=== PATIENT | female | born 1950 | race Caucasian/White ===

== ENCOUNTER 2018-10-26 18:42 | Emergency (ER) | payer OTHER ==
--- NOTE | 2018-10-26 18:49 | ER Report ---
History and Physical Time Seen By MD: 18:49 HPI/ROS CHIEF COMPLAINT: chest pain HISTORY OF PRESENT ILLNESS: This is a 68 year old female. She has a history of NH and stents. Has had chest pain, central substernal, radiation to neck, jaw and left arm. Similar to prior NH pain, although not as severe. Has some nausea with this. Given 324mg PO aspirin by EMS as well as 2 sprays of nitroglycerin without relief of symptoms. Has a headache after the nitro. Rates the chest pain 7 on a 1-10 scale. No fevers or chills. Her yard assistant is Dr. Almonte at [facility]. REVIEW OF SYSTEMS: Constitutional: No fever or chills. Eyes: No vision changes. ENT: No sore throat. No congestion. Cardiovascular: As above. Respiratory: As above. Gastrointestinal: No abdominal pain. Genitourinary: No problems with urination. Musculoskeletal: No musculoskeletal pain Skin: No rashes. Neurological: No numbness. Generalized weakness. Allergies: Coded Allergies: No Known Drug Allergies (Verified , 10/26/18) Home Meds Reported Medications Hydrocodone Bit/Acetaminophen (NORCO 5-325 TABLET) 1 Each Tablet, 1-2 EACH PO PRN for PAIN 08/21/13 Ibuprofen (MOTRIN IB) 200 Mg Tablet, 4 TAB PO Q6-8H 08/21/13 Fluticasone Propionate (FLOVENT HFA) 110 Mcg Inha, 110 MCG INH 07/28/13 Amlodipine Besylate (AMLODIPINE BESYLATE) 5 Mg Tablet, 1 TAB PO QDAY, TAB TAKE ONE TABLET BY MOUTH EVERY DAY 07/28/13 Pantoprazole Sodium (PANTOPRAZOLE SODIUM) 40 Mg Tablet.dr, 40 MG PO QDAY, TAB.SR 07/28/13 Levothyroxine Sodium (LEVOTHYROXINE SODIUM) 88 Mcg Tablet, 88 MCG PO QDAY 07/28/13 Lutein (Lutein) 6 Mg Capsule, 20 MG PO DAILY, 0 Refills 06/28/09 Solifenacin Succinate (Vesicare) 5 Mg Tab, 5 MG PO QDAY, 0 Refills 06/28/09 Desvenlafaxine Succinate (Pristiq) 50 Mg Tab.sr.24h, 100 MG PO DAILY, 0 Refills 06/28/09 Reviewed Nurses Notes: Yes Hx Smoking: No Hx Alcohol Use: No Constitutional Vital Sign - Last 24 Hours 10/26/18 10/26/18 10/26/18 10/26/18 18:43 18:43 18:52 18:56 Temp 98.1 Pulse 73 Resp 24 B/P (MAP) 137/77 137/77 (97) 132/72 (92) Pulse Ox 99 O2 Delivery Nasal Cannula O2 Flow Rate 2.0 10/26/18 10/26/18 10/26/18 10/26/18 18:57 19:00 19:12 19:27 Pulse 71 68 65 Resp 9 13 12 B/P (MAP) 130/61 (84) Pulse Ox 99 100 100 10/26/18 10/26/18 10/26/18 10/26/18 19:30 19:42 19:57 20:00 Pulse 65 67 Resp 16 9 B/P (MAP) 139/74 (95) 120/68 (85) Pulse Ox 99 96 10/26/18 10/26/18 10/26/18 10/26/18 20:12 20:27 20:30 20:30 Pulse 66 64 65 Resp 10 8 11 B/P (MAP) 117/64 (81) 117/64 (81) Pulse Ox 96 96 95 10/26/18 10/26/18 10/26/18 10/26/18 20:45 21:00 21:15 21:30 Pulse 67 66 69 67 Resp 12 9 14 13 B/P (MAP) 111/62 (78) 112/71 (85) Pulse Ox 95 95 94 96 10/26/18 10/26/18 10/26/18 10/26/18 21:45 22:00 22:05 22:20 Pulse 67 62 66 66 Resp 14 12 11 8 B/P (MAP) 116/65 (82) Pulse Ox 97 96 96 94 18/10/26/10/26/10/26/18 22:30 22:35 22:50 23:00 Pulse 65 66 Resp 7 12 B/P (MAP) 119/65 (83) 115/64 (81) Pulse Ox 94 95 18/10/26/10/26/10/26/18 23:05 23:20 23:30 23:35 Pulse 75 62 62 Resp 14 13 12 B/P (MAP) 125/72 (89) Pulse Ox 90 97 97 10/26/18 10/26/18 10/27/18 10/27/18 23:40 23:55 00:00 00:10 Pulse 81 64 61 Resp 26 12 6 B/P (MAP) 116/70 (85) Pulse Ox 88 96 96 10/27/18 10/27/18 10/27/18 10/27/18 00:25 00:30 00:40 00:55 Pulse 63 64 ??? Resp 9 9 35 B/P (MAP) 120/70 (87) Pulse Ox 95 95 Intake and Output 10/26/18 10/26/18 10/27/18 15:00 23:00 07:00 Intake Total 1000 ml 24.8 ml Balance 1000 ml 24.8 ml Physical Exam General Appearance: The patient is alert. Acute distress due to symptoms. Eyes: Pupils are equal, round. No pallor, injection or icterus. ENT: Mucous membranes are moist. Normal oral mucosa. Posterior oropharynx is normal. Neck: Supple and non tender. Respiratory: Lungs are clear to auscultation. Cardiovascular: Regular rate and rhythm. No murmurs, gallops or rubs. Normal capillary refill. Has bilateral trace ankle edema. Gastrointestinal: Abdomen is soft and non tender. Nondistended. Normal active bowel sounds. Neurological: Alert and oriented x3. Skin: Warm and dry. No rashes. Musculoskeletal: Extremities are nontender. Has some pain reproducible in the chest wall with palpation, but described as different that the pain she is concerned about. DIFFERENTIAL DIAGNOSIS: After history and physical exam, differential diagnosis was considered for chest pain including but not limited to myocardial ischemia, pericarditis pulmonary embolus, chest wall pain, pleural inflammation and pul monary infectious causes. Medical Decision Making Data Points Result Diagram: 10/26/18 1840 10/26/18 1840 Laboratory Hematology Test 10/26/18 18:40 10/26/18 22:33 Red Blood Count 4.85 M/uL (4.17-5.56) Mean Corpuscular Volume 79.5 fL (80.0-96.0) Mean Corpuscular Hemoglobin 26.0 pg (26.0-33.0) Mean Corpuscular Hemoglobin Concent 32.7 g/dL (32.0-36.0) Red Cell Distribution Width 17.3 % (11.5-14.5) Mean Platelet Volume 8.2 fL (7.2-11.1) Neutrophils (%) (Auto) 61.1 % (39.4-72.5) Lymphocytes (%) (Auto) 27.3 % (17.6-49.6) Monocytes (%) (Auto) 8.5 % (4.1-12.4) Eosinophils (%) (Auto) 2.5 % (0.4-6.7) Basophils (%) (Auto) 0.6 % (0.3-1.4) Nucleated RBC Relative Count (auto) 0.0 /100WBC Neutrophils # (Auto) 4.0 K/uL (2.0-7.4) Lymphocytes # (Auto) 1.8 K/uL (1.3-3.6) Monocytes # (Auto) 0.6 K/uL (0.3-1.0) Eosinophils # (Auto) 0.2 K/uL (0.0-0.5) Basophils # (Auto) 0.0 K/uL (0.0-0.1) Nucleated RBC Absolute Count (auto) 0.00 K/uL Prothrombin Time 12.7 seconds (12.0-14.4) Prothromb Time International Ratio 0.95 Activated Partial Thromboplast Time 35 seconds (23-35) Sodium Level 138 mmol/L (137-145) Potassium Level 3.9 mmol/L (3.5-5.0) Chloride Level 105 mmol/L (98-107) Carbon Dioxide Level 23 mmol/L (22-31) Blood Urea Nitrogen 20 mg/dl (7-18) Creatinine 1.40 mg/dl (0.52-1.04) Glomerular Filtration Rate Calc 37.2 Random Glucose 147 mg/dl (75-110) Calcium Level 9.2 mg/dl (8.4-10.2) Total Bilirubin 0.7 mg/dl (0.2-1.3) Aspartate Amino Transf (AST/SGOT) 69 U/L (0-35) Alanine Aminotransferase (ALT/SGPT) 15 U/L (0-56) Alkaline Phosphatase 347 U/L (0-126) Total Protein 8.3 g/dl (6.3-8.2) Albumin 4.4 g/dl (3.5-5.0) Troponin I 0.257 ng/ml Chemistry Test 10/26/18 18:40 10/26/18 22:33 White Blood Count 6.6 k/uL (4.5-11.0) Red Blood Count 4.85 M/uL (4.17-5.56) Hemoglobin 12.6 g/dL (12.0-16.0) Hematocrit 38.5 % (34.0-47.0) Mean Corpuscular Volume 79.5 fL (80.0-96.0) Mean Corpuscular Hemoglobin 26.0 pg (26.0-33.0) Mean Corpuscular Hemoglobin Concent 32.7 g/dL (32.0-36.0) Red Cell Distribution Width 17.3 % (11.5-14.5) Platelet Count 347 K/uL (150-450) Mean Platelet Volume 8.2 fL (7.2-11.1) Neutrophils (%) (Auto) 61.1 % (39.4-72.5) Lymphocytes (%) (Auto) 27.3 % (17.6-49.6) Monocytes (%) (Auto) 8.5 % (4.1-12.4) Eosinophils (%) (Auto) 2.5 % (0.4-6.7) Basophils (%) (Auto) 0.6 % (0.3-1.4) Nucleated RBC Relative Count (auto) 0.0 /100WBC Neutrophils # (Auto) 4.0 K/uL (2.0-7.4) Lymphocytes # (Auto) 1.8 K/uL (1.3-3.6) Monocytes # (Auto) 0.6 K/uL (0.3-1.0) Eosinophils # (Auto) 0.2 K/uL (0.0-0.5) Basophils # (Auto) 0.0 K/uL (0.0-0.1) Nucleated RBC Absolute Count (auto) 0.00 K/uL Prothrombin Time 12.7 seconds (12.0-14.4) Prothromb Time International Ratio 0.95 Activated Partial Thromboplast Time 35 seconds (23-35) Glomerular Filtration Rate Calc 37.2 Calcium Level 9.2 mg/dl (8.4-10.2) Total Bilirubin 0.7 mg/dl (0.2-1.3) Aspartate Amino Transf (AST/SGOT) 69 U/L (0-35) Alanine Aminotransferase (ALT/SGPT) 15 U/L (0-56) Alkaline Phosphatase 347 U/L (0-126) Total Protein 8.3 g/dl (6.3-8.2) Albumin 4.4 g/dl (3.5-5.0) Troponin I 0.257 ng/ml Coagulation Test 10/26/18 18:40 Prothrombin Time 12.7 seconds Prothromb Time International Ratio 0.95 Activated Partial Thromboplast Time 35 seconds EKG/Imaging EKG Interpretation 12 lead EKG: Rhythm: Normal sinus rhythm, rate 71 [place]: normal QRS: normal ST segments: Does have a little bit of a biphasic nature of the T waves in the inferior leads, no ST elevation or depression noted at this time These changes are nonspecific an look unchanged when compared to her last EKG here. Imaging EXAMINATION: Portable AP Chest HISTORY: Chest pain. COMPARISON: 02/05/2015. FINDINGS: Large hiatal hernia behind the heart. Normal heart size and pulmonary vascularity, with normal cardiomediastinal contours. There is mild parenchymal opacity in both lung bases, greater on the right. This may represent atelectasis or infiltrate. Small pleural effusions are not excluded. The upper lungs are clear. No pneumothorax. No acute osseous findings in the chest. IMPRESSION: 1. Large hiatal hernia behind the heart. 2. Mild bibasilar atelectasis or infiltrate, greater on the right. Small pleural effusions not excluded. 3. Normal heart size. Report Dictated By: Michelet Griffith MD at 10/26/2018 8:11 PM ED Course/Re-evaluation Clinical Indication for ER IV: IV Access ED Course Initial troponin and EKG negative for signs of ischemia however given her history and presentation, high risk for this being an acute coronary syndrome. Gave morphine 4 mg IV and Zofran 4 mg IV to try and help with her pain. This did reduce her pain quite a bit down to about a 2 on a 1-10 scale. Repeat troponin was drawn a little over 3 hours after the first. This came back critically elevated at 0.257. Repeat EKG is unchanged. I reviewed this with the patient. Her yard [place] [facility] [place] and spoke with Dr. العراقي, cardiology, and Dr. Medel, hospitalist, who accepted the patient. We are going to be starting the patient on a heparin bolus and then a heparin drip. 4000 units as a bolus followed by 1000 units per hour as a drip. Pain still little level of 2 on a 1-10 scale. Decision to Disposition Date: October 26, 2018 Decision to Disposition Time: 23:28 Depart Departure Latest Vital Signs Vital Signs Date Time Temp Pulse Resp B/P (MAP) Pulse Ox O2 Delivery O2 Flow Rate FiO2 10/27/18 00:55 ??? 35 10/27/18 00:40 95 10/27/18 00:30 120/70 (87) 10/26/18 18:43 98.1 Nasal Cannula 10/26/18 18:43 2.0 Impression: Primary Impression: Non-ST elevation NH (NSTEMI) Condition: Condition Unchanged Disposition: XFER TO ACUTE CARE HOSPITAL Referrals: SERA HOPE MD (PCP) YOLI COFFEY MD October 26, 2018 18:49
[2018-10-26 19:04] LABS: PLATELET COUNT, AUTOMATED 347 K/uL (150-450)
--- NOTE | 2018-10-26 19:11 | EKG ---
FACILITY: [facility] PATIENT NAME: HANK BRYANT : [id number] MR: [id number] V: [id number] EXAM DATE: ORDERING PHYSICIAN: YOLI COFFEY TECHNOLOGIST: LOIS Test Reason : CHEST PAIN Blood Pressure : / mmHG Vent. Rate : 071 BPM Atrial Rate : 071 BPM P-R Int : 192 ms QRS Dur : 078 ms QT Int : 420 ms P-R-T Axes : 067 -26 004 degrees QTc Int : 456 ms Normal sinus rhythm non-specific st-t wave abnormality Abnormal ECG When compared with ECG of 08-DEC-2013 19:31, No significant change was found Confirmed by Peterson Phillips ([id number]) on 10/26/2018 9:52:28 PM Referred By: Confirmed By:Peterson Tom
[2018-10-26] MEDS ORDERED: MORPHINE 4 MG/ML SDV IVP ONE (19:15)
[2018-10-26] MEDS ORDERED: ONDANSETRON 4 MG/2 ML VIAL IVP ONE (19:15)
[2018-10-26 19:29] LABS: INR 0.95
--- NOTE | 2018-10-26 20:17 | RADIOLOGY IMAGING REPORT ---
FACILITY: [facility] [place] PATIENT NAME: Sahara Medina : 1950 MR: [id number] V: [id number] EXAM DATE: ORDERING PHYSICIAN: YOLI COFFEY TECHNOLOGIST: Location: [facility] [place] Patient: Sahara Medina : 1950 Visit/Account:[id number] Date of Sevice: 10/26/2018 EXAMINATION: Portable AP Chest HISTORY: Chest pain. COMPARISON: 02/05/2015. FINDINGS: Large hiatal hernia behind the heart. Normal heart size and pulmonary vascularity, with normal cardiomediastinal contours. There is mild parenchymal opacity in both lung bases, greater on the right. This may represent atele ctasis or infiltrate. Small pleural effusions are not excluded. The upper lungs are clear. No pneu mothorax. No acute osseous findings in the chest. IMPRESSION: 1. Large hiatal hernia behind the heart. 2. Mild bibasilar atelectasis or infiltrate, greater on the right. Small pleural effusions not excl uded. 3. Normal heart size. Report Dictated By: Michelet Griffith MD at 10/26/2018 8:11 PM Report E-Signed By: Michelet Griffith MD at 10/26/2018 8:14 PM WSN:[id number] MIGUEL
[2018-10-26] MEDS ORDERED: HEPARIN* SOD/D5W 25000 U/500ML 500 ML IV ONE (23:20)
[2018-10-26] MEDS ORDERED: HEPARIN (PORC) 5000 UN/ML VIAL IVP ONE (23:20)
--- NOTE | 2018-10-27 00:11 | EKG ---
FACILITY: [facility] [place] PATIENT NAME: HANK BRYANT : [id number] MR: [id number] V: [id number] EXAM DATE: ORDERING PHYSICIAN: YOLI COFFEY TECHNOLOGIST: LOIS Test Reason : CHEST PAIN Blood Pressure : / mmHG Vent. Rate : 062 BPM Atrial Rate : 062 BPM P-R Int : 196 ms QRS Dur : 080 ms QT Int : 468 ms P-R-T Axes : 061 -03 050 degrees QTc Int : 475 ms Normal sinus rhythm Anterolateral infarct , age undetermined Abnormal ECG When compared with ECG of 26-OCT-2018 19:01, Anterolateral infarct is now present Confirmed by Peterson Phillips ([id number]) on 10/27/2018 7:43:08 AM Referred By: Confirmed By:Peterson Tom
[2018-10-27 00:30] VITALS: BP 120/70
[2018-10-27] MEDS ORDERED: EMS NS 0.9%(*) 1000 ML BAG 1,000 ML IV ONE (01:20)
== END 2018-10-27 00:59 | disposition short-term general hospital (02) ==
LOC: ER 18:44
DX: I21.4 Non-ST elevation (NSTEMI) myocardial infarction (principal)
CPT/HCPCS: 71045; 84484; 85025; 85610; 85730; 93005; 96361; 96365; 96375; 99285; J1644; J2270; J2405; 82040; 82247; 82310; 82374; 82435; 82565; 82947; 84075; 84132; 84155; 84295; 84450; 84460; 84520

== ENCOUNTER → 2018-10-26 | Outpatient (CLI) | payer OTHER ==
[~2018-10-26] MED LIST: AMLO-125 PO; CALC500T42 PO; CEF300 PO; CEFU250 PO; CIPR-368 PO; DESV50TA9 PO; FISH OIL1 CAP PO; FLUINH INH; HYDR-653 PO; IBUP-1671 PO; LEVO50TA80 PO; LEVO88TA45 PO; LISI-349 PO; LOPE2CAP88 PO; LUTE6CAP11 PO; METR-1 PO; MULT1CAP59 PO; NAP250 PO; NAP500 PO; ONDA4TAB PO; PANT40TA65 PO; PRE10 PO; SER50 PO; SOL5 PO
== END ==
LOC: AMB 18:22
PROVIDERS: ATTEND Nurse Practitioner
DX: R07.9 Chest pain, unspecified (principal); M79.602 Pain in left arm; M54.2 Cervicalgia
CPT/HCPCS: A0425; A0427

== ENCOUNTER → 2018-10-27 | Outpatient (CLI) | payer OTHER | LOC: AMB 00:31 | PROVIDERS: ATTEND Nurse Practitioner | DX: I21.4 Non-ST elevation (NSTEMI) myocardial infarction (principal); R53.1 Weakness | CPT/HCPCS: A0425; A0426 ==

== ENCOUNTER 2019-01-13 10:00 | Outpatient (RCR) | payer MEDICARE, OTHER ==
[2018-11-13 12:51] VITALS: BP 122/86
[2018-11-13 12:52] VITALS: BP 120/76
[2018-11-15 12:49] VITALS: BP_SYST 116; BP_SYST 124; BP_DIAS 68
--- NOTE | 2018-11-15 14:24 | CARDIAC REHAB PLAN OF CARE ---
Physician: Diaz Kaiser MD Patient is being seen: Darshana Gallagher MS Medical Diagnosis: NSTEMI; STENT x 2 Date of Onset: 10/27/18 Date of Initial Evaluation: 11/13/18 Due Date: 12/15/18 Patient Assessment: Patient is a 68yr old female who comes to cardiac rehab for the second timeshe did not finish her cardiac rehabilitation in 2013 (only attended for approximately 1 month before quitting). This was her second NSTEMI followed by Stent placement (total 2 stents). She has significant health history of CHF (LVEF 35%), high cholesterol, HTN and sleep apnea (CPAP at night). Anthropologically, she is obese with a BMI of 44.8kg/m2. This excess adiposity has led to the development of OA and difficulty with exercise due to inhibited range of motion. She is highly motivated to be herestating she wants to do it right this time. Her goals are to learn to breath better/feel less SOB and to learn how to lose weight. Exercise Assessment: The patient currently does not do any structured exercise, only walking occasionally. During her 6 Minute-Walk Test she walked a total of 800ft for an average speed of 1.5mph. She took two different breaks during the 6 minutes to rest and catch her breath. She reports SOB of +7/10, but her SPO2 remained above 90% for the majority of the test. She did have some upper respiratory tract wheezing that was not accompanied by any wheezing her in lungs. For exercise she switches between the recumbent bike, NuStep, and treadmill. Her HR varies between 95-110bpm. She had a normal hemodynamic response, with blood pressure rising to 144/72mmHg and her ECG showed sinus tach. Exercise Plan Goals: Goals include improving stamina and exercise breathing techniques and learning how regular exercise contributes to weight loss. Exercise Prescription: Frequency: 3 days/week (MWF) adding additional physical activity on days off after first month of rehab Intensity: THR zone 90-110bpm; RPE 13-14 Time: starting with 30 minutes and gradually increasing to 50 minutes/session Nutrition Assessment: Patient was given homework to fill out the Rate my Plate questionnaire to assist us in discussing her caloric intake. Currently, she reports eating a typical [place]iqu[place] based diet. She drinks a special K meal replacement for breakfast with sweetened coffee and dinner consists of starchy vegetables and meat. She reports that her weakness is sweets and cake. Nutrition Plan Goals: Goals will be to help educate the patient in small simple changes that can help her eat more heart healthy and swaps to make to help her lose weight. Intervention: Main intervention will be educating the patient on caloric intake vs. expenditure in terms of weight loss and weight management. Education: Education will focus on nutrition label reading, portion control, and including physical activity. Psychosocial Assessment: Patient is currently being treated medicinally for depression and scored in the moderate category for anxiety according to her Hospital Anxiety and Depression Scale. She does seems worried about her health, but she is using the anxiety to push her towards making changes (such as losing weight and attending cardiac rehab). Psychosocial Plan Goals: Our goal will be to help her focus her anxiety and energy towards healthy solutions to help resolve her anxiety (such as proper diet, exercise, and social engagement). Intervention: Intervention will be to provide a safe and comfortable exercise environment where the patient feels that she can learn and ask questions freely. We also want to provide positive encouragement and motivation for her as well as social support. Education: Education will focus on how exercise and healthy eating can contribute to mental wellbeing. ARTI
[2018-11-20 13:01] VITALS: BP 122/80
[2018-11-20 13:03] VITALS: BP 122/78
[2018-11-22 15:40] VITALS: BP 122/72
[2018-11-22 15:42] VITALS: BP 124/72
[2018-11-27 13:21] VITALS: BP 130/72
[2018-11-27 13:28] VITALS: BP 120/78
[2018-11-29 12:44] VITALS: BP 124/60
[2018-11-29 12:45] VITALS: BP 120/72
[2018-12-02 12:56] VITALS: BP 128/64
[2018-12-02 12:57] VITALS: BP 114/78
[2018-12-06 12:59] VITALS: BP 126/68
[2018-12-06 13:00] VITALS: BP 112/64
[2018-12-16 13:03] VITALS: BP_SYST 112; BP_SYST 126; BP_SYST 134; BP_DIAS 64; BP_DIAS 68; BP_DIAS 70; BP_DIAS 78
[2018-12-18 13:03] VITALS: BP 122/70
[2018-12-18 13:04] VITALS: BP 108/70
--- NOTE | 2018-12-18 15:20 | CARDIAC REHAB PLAN OF CARE ---
Physician: Diaz Kaiser MD Patient is being seen: Darshana Gallagher MS Medical Diagnosis: NSTEMI; Stent x 3 Date of Onset: 10/27/18 Date of Initial Evaluation: 11/13/18 Date patient was last seen: 12/18/18 Number of treatments: 11 Number of cancellations/No Shows: 1 INTERVENTIONS: Due Date: 01/18/19 Exercise Reassessment (12/18/18): The patient has successfully increased her exercise duration to 30 minutes/session. She recently increased her MET level from 3.0 on average, to today reaching 5.5 on average, which is an incredible increase. Although she reports being short of breath, her SPO2 remains saturated above 90% for the entirety of her exercise. She has achieved her THR zone on a consistent basis and does not struggle to maintain it continuously. Over the next month, the goal will be to maintain her exercise intensity (5.5- 6.0METs) and increase exercise duration to 40 minutes/session on average. She also has set the goal to exercise on her days off at home for at least 2 sessions 5 minutes each on her recumbent bike. Nutrition Reassessment (12/18/18): After analyzing the patients Rate Your Place Questionnaire, she ranks in the moderate area for dietary nutritionwith room for some improvements. She does not eat enough, which is causing her metabolism to diminish and decreasing her energy levels. She reports starting to eat breakfast more regularly, and that she has started to eat smaller portions when eating out at restaurants. She has not lost any weight, which has shown to be frustrating for her. Goals for the next month include increasing vegetable consumption and learning to eat more frequently, small things throughout the day. Psychosocial Reassessment (12/18/18): Patients self-confidence has immensely improved since the beginning of the program. She is pushing herself harder with physical activity, and aims to set goals to keep herself motivated. 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 Our goal over the next month is to help her find some other outlets for her time and energy that help her stay active and be more productive with her health goals. ARTI
[2019-01-06 18:04] VITALS: BP 124/76
[2019-01-06 18:08] VITALS: BP 110/62
[2019-01-10 12:42] VITALS: BP 122/80
[2019-01-10 12:43] VITALS: BP 114/72
[2019-01-13 13:07] VITALS: BP 122/66
[2019-01-13 13:08] VITALS: BP 104/66
== END 2019-01-13 18:00 | disposition home or self-care (01) ==
LOC: CARD 10:00
PROVIDERS: ATTEND Family Medicine
DX: I50.22 Chronic systolic (congestive) heart failure (principal); I25.118 Atherosclerotic heart disease of native coronary artery with other forms of angina pectoris
CPT/HCPCS: 93798